=== PATIENT | female | born 1950 ===

== ENCOUNTER → 2024-07-06 09:28 | Outpatient (REF) | payer MEDICARE, SELFPAY | LOC: MRI 3T 09:28 | PROVIDERS: ATTENDING PHYSICIAN Orthopaedic Surgery; FAMILY PHYSICIAN Nurse Practitioner Family | DX: M25.552 Pain in left hip (principal) | CPT/HCPCS: 73721 ==

== ENCOUNTER → 2024-10-19 06:48 | Outpatient (REF) | payer MEDICARE, SELFPAY | LOC: MRI 3T 06:48 | PROVIDERS: ATTENDING PHYSICIAN Orthopaedic Surgery; FAMILY PHYSICIAN Nurse Practitioner Family; PRIMARYCARE PHYSICIAN Family Medicine | DX: M25.512 Pain in left shoulder (principal) | CPT/HCPCS: 73221 ==